=== PATIENT | female | born 1970 | race Caucasian/White ===

== ENCOUNTER → 2017-07-12 | Emergency (ER) | payer OTHER ==
[~2017-07-12] VITALS: Ht 167.6 cm; Wt 62.1 kg
== END | disposition home or self-care (01) ==
LOC: ER 11:43
DX: S01.511A Laceration without foreign body of lip, initial encounter (principal); W45.8XXA Other foreign body or object entering through skin, initial encounter; Y93.89 Activity, other specified; Y92.89 Other specified places as the place of occurrence of the external cause; Y99.8 Other external cause status

== ENCOUNTER 2017-07-20 09:32 | Emergency (ER) | payer OTHER ==
[~2017-07-20] VITALS: Ht 167.6 cm; Wt 57.6 kg
== END 2017-07-20 10:08 | disposition home or self-care (01) ==
LOC: ER 09:32
DX: Z48.02 Encounter for removal of sutures (principal)